=== PATIENT | female | born 1980 | race Caucasian/White ===

== ENCOUNTER 2018-11-28 20:04 | Observation (INO) | payer MEDICAID ==
[2018-11-28 21:54] LABS: BASOPHILS % 0.1 % (0.0-2.0); EOSINOPHILS % 0.8 % (0.0-5.0); HEMOGLOBIN. 11.8 g/dL (12.0-16.0); LYMPHOCYTES % 22.6 % (20.0-50.0); MEAN CORPUSCULAR HEMOGLOBIN 31.3 pg (28.0-32.0); MEAN PLATELET VOLUME 10.1 fl (7.4-10.4); NEUTROPHILS % 68.5 % (40.0-76.0); PLATELET 218 x1000/uL (130-400); RED BLOOD CELL COUNT 3.76 mill/uL (4.2-5.4); RED CELL DISTRIBUTION WIDTH 13.2 % (11.6-14.6)
[2018-11-28 21:58] LABS: CLARITY URINE CLEAR (CLEAR); COLOR URINE YELLOW (YELLOW); KETONES URINE NEGATIVE (NEGATIVE); LEUKOCYTE ESTERASE URINE NEGATIVE (NEGATIVE); NITRITE URINE NEGATIVE (NEGATIVE); OCCULT BLOOD URINE NEGATIVE (NEGATIVE); PROTEIN URINE NEGATIVE (NEGATIVE); SPECIFIC GRAVITY URINE 1.012 (1.005-1.030); UROBILINOGEN URINE 0.2 E.U./dL (0.2-1.0)
[2018-11-28 22:00] LABS: CHLORIDE 106 mEq/L (98-107)
[2018-11-28 22:02] LABS: INR 0.9; PARTIAL THROMBOPLASTIN TIME 23.1 sec (23.4-31.0); PROTHROMBIN TIME 9.4 sec (9.1-11.1)
[2018-11-29] MEDS ORDERED: PREN1TAB78 MT (00:14)
== END 2018-11-29 00:25 | disposition home or self-care (01) ==
LOC: 8 EST LDRP 20:04
PROVIDERS: ADMIT Specialist; ATTEND Specialist
DX: O16.3 Unspecified maternal hypertension, third trimester (principal); Z3A.33 33 weeks gestation of pregnancy
CPT/HCPCS: 36415; 76805; 76818; 80053; 81003; 84550; 85025; 85384; 85610; 85730; G0378; 99281

== ENCOUNTER 2019-01-04 13:17 | Observation (INO) | payer MEDICAID ==
[~2019-01-04] VITALS: Ht 172.7 cm; Wt 120.7 kg
[~2019-01-04 13:17] MED LIST: PREN1TAB78 MT
[2019-01-04 14:31] LABS: BASOPHILS % 0.2 % (0.0-2.0); EOSINOPHILS % 1.3 % (0.0-5.0); HEMATOCRIT. 33.5 % (36.0-48.0); HEMOGLOBIN. 11.2 g/dL (12.0-16.0); LYMPHOCYTES % 27.7 % (20.0-50.0); MEAN CORPUSCULAR HEMOGLOBIN 30.8 pg (28.0-32.0); MEAN CORPUSCULAR VOLUME 91.8 fL (81.0-99.0); MEAN PLATELET VOLUME 10.6 fl (7.4-10.4); MONOCYTES % 8.3 % (2.0-8.0); NEUTROPHILS % 62.5 % (40.0-76.0); PLATELET 190 x1000/uL (130-400); RED BLOOD CELL COUNT 3.65 mill/uL (4.2-5.4); RED CELL DISTRIBUTION WIDTH 13.2 % (11.6-14.6)
[2019-01-04 14:35] LABS: CHLORIDE 107 mEq/L (98-107)
[2019-01-04 14:43] LABS: CLARITY URINE TURBID (CLEAR); COLOR URINE YELLOW (YELLOW); KETONES URINE NEGATIVE (NEGATIVE); LEUKOCYTE ESTERASE URINE 1+ (NEGATIVE); NITRITE URINE NEGATIVE (NEGATIVE); OCCULT BLOOD URINE NEGATIVE (NEGATIVE); PROTEIN URINE NEGATIVE (NEGATIVE); SPECIFIC GRAVITY URINE 1.011 (1.005-1.030)
[2019-01-04 14:46] LABS: D-DIMER 8.67 mg/L FEU (<0.50); INR 0.9; PARTIAL THROMBOPLASTIN TIME 21.3 sec (23.4-31.0); PROTHROMBIN TIME 9.4 sec (9.6-11.0)
[2019-01-04] MEDS ORDERED: LABETALOL HCL 5MG/ML VIAL 20ML IV PRN ×3 (17:00→18:15)
[2019-01-04] MEDS: LACTATED RINGERS 1,000 ML IV SCH (18:22)
[2019-01-04 18:24] VITALS: BP 169/89
[2019-01-04] MEDS ORDERED: LACTATED RINGERS 1,000 ML IV SCH (18:50)
[2019-01-04 19:44] LABS: HEPATITIS B SURFACE ANTIGEN NEGATIVE
[2019-01-04] MEDS ORDERED: CITRIC ACID/SODIUM CITRATE SOLN 15ML UDC PO NR (22:15)
[2019-01-04] MEDS ORDERED: CITRIC ACID/SODIUM CITRATE SOLN 30ML UDC PO ONE (22:30)
[2019-01-04] MEDS ORDERED: CITRIC ACID/SODIUM CITRATE SOLN 30ML UDC PO NR (22:45)
[2019-01-05] MEDS: LACTATED RINGERS 1,000 ML IV SCH ×2 (01:29→17:08)
[2019-01-05] MEDS ORDERED: LABETALOL HCL 100MG TABLET PO SCH (10:00)
[2019-01-05 10:09] LABS: CLARITY URINE CLOUDY (CLEAR); COLOR URINE YELLOW (YELLOW); KETONES URINE NEGATIVE (NEGATIVE); LEUKOCYTE ESTERASE URINE TRACE (NEGATIVE); NITRITE URINE NEGATIVE (NEGATIVE); OCCULT BLOOD URINE NEGATIVE (NEGATIVE); PH URINE 6.5 (4.5-8.0); PROTEIN URINE NEGATIVE (NEGATIVE); SPECIFIC GRAVITY URINE 1.022 (1.005-1.030)
[2019-01-05 10:24] LABS: *AMPHETAMINES SCREEN URINE NEGATIVE (NEGATIVE)
[2019-01-05 10:25] LABS: *BARBITURATES SCREEN URINE NEGATIVE (NEGATIVE); *BENZODIAZEPINES SCREEN URINE NEGATIVE (NEGATIVE); *COCAINE SCREEN URINE NEGATIVE (NEGATIVE); METHADONE URINE SCREEN NEGATIVE (NEGATIVE); OPIATES URINE SCREEN NEGATIVE (NEGATIVE)
[2019-01-05 10:26] LABS: CANNABINOID URINE SCREEN NEGATIVE (NEGATIVE); PHENCYCLIDINE URINE SCREEN NEGATIVE (NEGATIVE)
[2019-01-05 10:34] LABS: BASOPHILS % 0.3 % (0.0-2.0); EOSINOPHILS % 0.7 % (0.0-5.0); HEMATOCRIT. 32.8 % (36.0-48.0); HEMOGLOBIN. 10.7 g/dL (12.0-16.0); LYMPHOCYTES % 32.8 % (20.0-50.0); MEAN CORPUSCULAR HEMOGLOBIN 29.9 pg (28.0-32.0); MEAN CORPUSCULAR VOLUME 91.5 fL (81.0-99.0); MEAN PLATELET VOLUME 10.5 fl (7.4-10.4); MONOCYTES % 6.4 % (2.0-8.0); NEUTROPHILS % 59.8 % (40.0-76.0); PLATELET 181 x1000/uL (130-400); RED BLOOD CELL COUNT 3.58 mill/uL (4.2-5.4); RED CELL DISTRIBUTION WIDTH 13.1 % (11.6-14.6)
[2019-01-05 10:45] LABS: CHLORIDE 108 mEq/L (98-107)
[2019-01-05 10:51] LABS: D-DIMER 9.85 mg/L FEU (<0.50); INR 0.9; PARTIAL THROMBOPLASTIN TIME 21.2 sec (23.4-31.0); PROTHROMBIN TIME 9.6 sec (9.6-11.0)
[2019-01-05] MEDS ORDERED: LABE100T5 PO (19:42)
== END 2019-01-05 19:50 | disposition home or self-care (01) ==
LOC: 8 EST LDRP 13:17
PROVIDERS: ADMIT Specialist; ATTEND Specialist
DX: O16.3 Unspecified maternal hypertension, third trimester (principal); Z3A.37 37 weeks gestation of pregnancy
CPT/HCPCS: 36415; 76805; 76818; 80053; 80305; 81003; 84550; 85025; 85379; 85384; 85610; 85730; 86703; 86762; 86850; 86900; 86901; 87340; 96374; 96376; 99281; G0378; J3490; J7120; 96360; 96361

== ENCOUNTER 2019-01-07 15:27 | Inpatient (IN) | payer MEDICAID ==
[~2019-01-07] VITALS: Ht 172.7 cm; Wt 120.7 kg
[~2019-01-07 15:27] MED LIST changes: +LABE100T5 PO
[2019-01-07] MEDS ORDERED: NALOXONE HCL 0.4 MG/ML 1ML VIAL IM PRN (20:15)
[2019-01-07] MEDS ORDERED: LIDOCAINE HCL 1% 20ML VIAL (Pyxis) INJ INFIL SCH (20:15)
[2019-01-07] MEDS ORDERED: BUTORPHANOL TARTRATE 2 MG/ML VIAL IV PRN (20:15)
[2019-01-07] MEDS ORDERED: METHYLERGONOVINE MALEATE 0.2 MG/ML IM PRN (20:15)
[2019-01-07] MEDS ORDERED: CARBOPROST TROMETHAMINE 250 MCG/ML AMPUL IM PRN (20:15)
[2019-01-07] MEDS ORDERED: PENICILLIN G POTASSIUM 5 MMU in DEXT 5% WATER 100 ML IV NR (21:00)
[2019-01-07 22:31] LABS: CLARITY URINE CLOUDY (CLEAR); COLOR URINE AMBER (YELLOW); KETONES URINE TRACE (NEGATIVE); LEUKOCYTE ESTERASE URINE 1+ (NEGATIVE); NITRITE URINE NEGATIVE (NEGATIVE); OCCULT BLOOD URINE NEGATIVE (NEGATIVE); PH URINE 6.5 (4.5-8.0); PROTEIN URINE 1+ (NEGATIVE); SPECIFIC GRAVITY URINE 1.021 (1.005-1.030)
[2019-01-07 22:33] LABS: BASOPHILS % 0.1 % (0.0-2.0); HEMATOCRIT. 31.3 % (36.0-48.0); HEMOGLOBIN. 10.4 g/dL (12.0-16.0); MEAN CORPUSCULAR HEMOGLOBIN 30.7 pg (28.0-32.0); MEAN CORPUSCULAR VOLUME 92.3 fL (81.0-99.0); MONOCYTES % 6.5 % (2.0-8.0); NEUTROPHILS % 63.4 % (40.0-76.0); PLATELET 171 x1000/uL (130-400); RED BLOOD CELL COUNT 3.39 mill/uL (4.2-5.4); RED CELL DISTRIBUTION WIDTH 13.6 % (11.6-14.6)
[2019-01-07 22:37] LABS: CHLORIDE 109 mEq/L (98-107)
[2019-01-07] MEDS: LACTATED RINGERS 1,000 ML IV SCH (22:39)
[2019-01-07] MEDS: LABETALOL HCL 100MG TABLET PO SCH (22:40)
[2019-01-07] MEDS: MISOPROSTOL 100MCG TABLET PO PRN (22:41)
[2019-01-07 22:42] LABS: INR 0.9; PARTIAL THROMBOPLASTIN TIME 22.4 sec (23.4-31.0); PROTHROMBIN TIME 9.6 sec (9.6-11.0)
[2019-01-08] MEDS ORDERED: PENICILLIN G POTASSIUM 2.5 MMU in DEXTROSE 5% WATER 50 ML IV SCH (01:00)
[2019-01-08] MEDS: MISOPROSTOL 100MCG TABLET PO PRN ×3 (03:09→13:57)
[2019-01-08] MEDS: MAGNESIUM/ALUMINUM HYDROXIDE/SIMETHICONE 30ML UDC PO PRN ×2 (03:10→22:12)
[2019-01-08] MEDS ORDERED: MAGNESIUM 4 G PREMIX 100 ML IV NR (03:15)
[2019-01-08] MEDS ORDERED: ONDANSETRON HCL 4MG/2ML INJ IV PRN (03:15)
[2019-01-08] MEDS ORDERED: MAGNESIUM 2 G PREMIX 50 ML IV SCH (03:15)
[2019-01-08] MEDS ORDERED: MAGNESIUM/ALUMINUM HYDROXIDE/SIMETHICONE 30ML UDC PO PRN (03:15)
[2019-01-08] MEDS: MAGNESIUM 20 G PREMIX (L & D) 500 ML IV SCH ×2 (03:55→20:20)
[2019-01-08] MEDS: LACTATED RINGERS 1,000 ML IV SCH (04:19)
[2019-01-08] MEDS ORDERED: LABETALOL HCL 5MG/ML VIAL 20ML IV PRN ×5 (08:15→16:00)
[2019-01-08] MEDS: LABETALOL HCL 100MG TABLET PO SCH ×2 (10:09→21:51)
[2019-01-08] MEDS: ACETAMINOPHEN 500MG TABLET PO PRN (14:09)
[2019-01-09] MEDS: LACTATED RINGERS 1,000 ML IV SCH (00:24)
[2019-01-09] MEDS ORDERED: LABETALOL HCL 5MG/ML VIAL 20ML IV NR (01:45)
[2019-01-09] MEDS ORDERED: LABETALOL HCL 5MG/ML VIAL 20ML IV PRN ×9 (07:45→18:45)
[2019-01-09] MEDS ORDERED: ROPIVACAINE HCL/PF EPIDURAL 200 ML EPI ONE (08:00)
[2019-01-09] MEDS: MISOPROSTOL 100MCG TABLET PO PRN ×2 (08:00→12:52)
[2019-01-09 09:06] LABS: EOSINOPHILS % 0.1 % (0.0-5.0); HEMATOCRIT. 32.7 % (36.0-48.0); HEMOGLOBIN. 10.7 g/dL (12.0-16.0); LYMPHOCYTES % 15.4 % (20.0-50.0); MEAN CORPUSCULAR HEMOGLOBIN 29.9 pg (28.0-32.0); MEAN CORPUSCULAR VOLUME 91.8 fL (81.0-99.0); MONOCYTES % 7.1 % (2.0-8.0); NEUTROPHILS % 77.4 % (40.0-76.0); PLATELET 187 x1000/uL (130-400); RED BLOOD CELL COUNT 3.56 mill/uL (4.2-5.4); RED CELL DISTRIBUTION WIDTH 13.8 % (11.6-14.6)
[2019-01-09 09:14] LABS: INR 0.9
[2019-01-09] MEDS: LABETALOL HCL 100MG TABLET PO SCH ×2 (09:29→20:59)
[2019-01-09] MEDS ORDERED: MISOPROSTOL 200MCG TABLET ONE (10:00)
[2019-01-09] MEDS: MAGNESIUM 20 G PREMIX (L & D) 500 ML IV SCH ×2 (12:18→23:04)
[2019-01-09] MEDS: DEXT 5%/LR + PITOCIN 20UNITS/L 1,000 ML IV SCH ×2 (13:14→18:58)
[2019-01-09] MEDS ORDERED: LIDOCAINE HCL/PF 1% 10 MG/ML 5ML VIAL ONE (15:35)
[2019-01-09] MEDS ORDERED: FENTANYL CITRATE/PF 50MCG/ML 2ML VIAL ONE (15:35)
[2019-01-09 16:00] LABS: CHLORIDE 106 mEq/L (98-107)
[2019-01-09] MEDS ORDERED: PROPOFOL 200MG/20ML VIAL IV ONE (16:19)
[2019-01-09] MEDS ORDERED: LIDOCAINE HCL 2%/EPINEPHRINE 1:100,000 20 ML VIAL INFIL ONE (16:27)
[2019-01-09] MEDS ORDERED: DEXT 5%/LR + PITOCIN 20UNITS/L 1,000 ML IV SCH (17:04)
[2019-01-09] MEDS ORDERED: GLYCERIN/WITCH HAZEL LEAF MEDICATED PAD TOP PRN (17:15)
[2019-01-09] MEDS ORDERED: IBUPROFEN 400MG TABLET PO PRN (17:15)
[2019-01-09] MEDS ORDERED: LANOLIN OINT 0.25 GM TUBE TOP PRN (17:15)
[2019-01-09] MEDS ORDERED: BENZOCAINE/LANOLIN/ALOE VERA SPRAY TOP PRN (17:15)
[2019-01-09] MEDS ORDERED: HEMORRHOIDAL SUPP PR PRN (17:15)
[2019-01-09] MEDS ORDERED: MAGNESIUM 20 G PREMIX (L & D) 500 ML IV SCH (17:15)
[2019-01-09] MEDS ORDERED: INFLUENZA VIRUS VACCINE(AFLURIA) 0.5ML SYR IM ONE (17:15)
[2019-01-09] MEDS ORDERED: BISACODYL 10MG SUPP PR PRN (17:15)
[2019-01-09] MEDS ORDERED: DIPHENHYDRAMINE 25MG CAPSULE PO PRN (17:15)
[2019-01-09] MEDS ORDERED: TETANUS, DIPHTHERIA, PERTUSSIS VAC/PF 0.5ML (>7YR OLD) IM ONE (17:15)
[2019-01-09] MEDS ORDERED: DOCUSATE SODIUM 100MG CAPSULE PO SCH (21:00)
[2019-01-10] MEDS: LACTATED RINGERS 1,000 ML IV SCH (05:04)
[2019-01-10] MEDS: ACETAMINOPHEN 500MG TABLET PO PRN ×2 (07:20→17:55)
[2019-01-10 07:30] LABS: BASOPHILS % 0.2 % (0.0-2.0); EOSINOPHILS % 0.5 % (0.0-5.0); HEMATOCRIT. 29.5 % (36.0-48.0); HEMOGLOBIN. 9.6 g/dL (12.0-16.0); LYMPHOCYTES % 18.2 % (20.0-50.0); MEAN CORPUSCULAR HEMOGLOBIN 29.8 pg (28.0-32.0); MEAN CORPUSCULAR VOLUME 91.6 fL (81.0-99.0); MEAN PLATELET VOLUME 10.4 fl (7.4-10.4); MONOCYTES % 10.2 % (2.0-8.0); NEUTROPHILS % 70.9 % (40.0-76.0); PLATELET 177 x1000/uL (130-400); RED BLOOD CELL COUNT 3.22 mill/uL (4.2-5.4); RED CELL DISTRIBUTION WIDTH 13.5 % (11.6-14.6)
[2019-01-10 07:45] LABS: CHLORIDE 108 mEq/L (98-107)
[2019-01-10] MEDS ORDERED: FERROUS SULFATE 325MG TABLET PO SCH (09:00)
[2019-01-10] MEDS ORDERED: PRENATAL VIT/FE FUMARATE/FA TABLET PO SCH (09:00)
[2019-01-10] MEDS: LABETALOL HCL 100MG TABLET PO SCH ×2 (09:10→21:43)
[2019-01-10] MEDS: MAGNESIUM 20 G PREMIX (L & D) 500 ML IV SCH (09:18)
[2019-01-10 16:35] VITALS: BP 134/75
[2019-01-10] MEDS: MAGNESIUM/ALUMINUM HYDROXIDE/SIMETHICONE 30ML UDC PO PRN (17:55)
[2019-01-10] MEDS: IBUPROFEN 800MG TABLET PO PRN (19:38)
[2019-01-10 20:00] VITALS: BP 148/86
[2019-01-10 21:40] VITALS: BP 138/68
[2019-01-11 00:15] VITALS: BP 131/81
[2019-01-11] MEDS ORDERED: TETANUS, DIPHTHERIA, PERTUSSIS VAC/PF 0.5ML (>7YR OLD) IM ONE (03:00)
[2019-01-11 04:10] VITALS: BP 136/78
[2019-01-11 08:00] VITALS: BP 185/99
[2019-01-11] MEDS: LABETALOL HCL 100MG TABLET PO SCH (08:14)
[2019-01-11] MEDS: IBUPROFEN 800MG TABLET PO PRN (08:14)
[2019-01-11 09:00] VITALS: BP 133/75
== END 2019-01-11 15:30 | disposition home or self-care (01) | DRG 560 ==
LOC: OBSVTOIN 15:27 → 8 EST LDRP 15:27 → 8EST 01-10 16:31
PROVIDERS: ADMIT Specialist; ATTEND Specialist
PROC: 10D07Z6 Extraction of Products of Conception, Vacuum, Via Natural or Artificial Opening (ICD-10-PCS; principal; 2019-01-10)
PROC: 0HQ9XZZ Repair Perineum Skin, External Approach (ICD-10-PCS; 2019-01-10)
PROC: 3E0S3BZ Introduction of Anesthetic Agent into Epidural Space, Percutaneous Approach (ICD-10-PCS; 2019-01-10)
PROC: 00HU33Z Insertion of Infusion Device into Spinal Canal, Percutaneous Approach (ICD-10-PCS; 2019-01-10)
DX: O40.3XX0 Polyhydramnios, third trimester, not applicable or unspecified (principal); Z68.41 Body mass index [BMI] 40.0-44.9, adult; E66.9 Obesity, unspecified; D64.9 Anemia, unspecified; O99.214 Obesity complicating childbirth; O13.4 Gestational [pregnancy-induced] hypertension without significant proteinuria, complicating childbirth; O69.1XX0 Labor and delivery complicated by cord around neck, with compression, not applicable or unspecified; O76 Abnormality in fetal heart rate and rhythm complicating labor and delivery; O99.334 Smoking (tobacco) complicating childbirth; O99.02 Anemia complicating childbirth; O70.0 First degree perineal laceration during delivery; Z3A.39 39 weeks gestation of pregnancy; Z37.0 Single live birth
CPT/HCPCS: 36415; 76815; 76818; 83735; 84550; 85384; 86592; 86762; 90715; J0595; J2405; J2540; J2590; J2704; J2795; J3010; J3475; J3490; J7060; J7120; A4315

== ENCOUNTER 2019-01-30 08:03 | Emergency (ER) | payer MEDICAID ==
[~2019-01-30] VITALS: Ht 175.3 cm; Wt 109.0 kg
[2019-01-30] MEDS ORDERED: SODIUM CHLORIDE 0.9% 1,000 ML IV ONE (10:57)
[2019-01-30] MEDS ORDERED: VALPROATE SODIUM 1,000 MG in DEXT 5% WATER 100 ML IV ONE (11:00)
[2019-01-30 12:18] VITALS: BP 127/63
== END 2019-01-30 12:18 | disposition home or self-care (01) ==
LOC: ER 08:03
DX: R56.9 Unspecified convulsions (principal); I10 Essential (primary) hypertension; Z79.899 Other long term (current) drug therapy
CPT/HCPCS: 96365; 99283; J3490; J7030; J7060; Z7610

== ENCOUNTER 2019-11-11 01:08 | Emergency (ER) | payer MEDICAID ==
[~2019-11-11] VITALS: Ht 172.7 cm; Wt 110.2 kg
[2019-11-11 04:57] LABS: BASOPHILS % 0.3 % (0.0-2.0); EOSINOPHILS % 0.4 % (0.0-5.0); HEMATOCRIT. 38.8 % (36.0-48.0); LYMPHOCYTES % 23.9 % (20.0-50.0); MEAN CORPUSCULAR HEMOGLOBIN 29.1 pg (28.0-32.0); MEAN CORPUSCULAR VOLUME 87.1 fL (81.0-99.0); MEAN PLATELET VOLUME 9.2 fl (7.4-10.4); MONOCYTES % 5.3 % (2.0-8.0); NEUTROPHILS % 70.1 % (40.0-76.0); PLATELET 233 x1000/uL (130-400); RED BLOOD CELL COUNT 4.46 mill/uL (4.2-5.4); RED CELL DISTRIBUTION WIDTH 14.1 % (11.6-14.6)
[2019-11-11 05:00] LABS: CHLORIDE 111 mEq/L (98-107)
[2019-11-11 05:04] LABS: ETHANOL BLOOD < 10 mg/dL
[2019-11-11] MEDS ORDERED: VALPROIC ACID 250MG CAPSULE PO ONE (05:15)
[2019-11-11 07:40] VITALS: BP 141/90
== END 2019-11-11 07:50 | disposition home or self-care (01) ==
LOC: ER 01:08
DX: G40.909 Epilepsy, unspecified, not intractable, without status epilepticus (principal); F17.210 Nicotine dependence, cigarettes, uncomplicated
CPT/HCPCS: 36415; 80053; 80165; 80320; 85025; 99283; G0480

== ENCOUNTER 2022-12-08 10:30 | Inpatient (IN) | payer MEDICAID ==
[~2022-12-08] VITALS: Ht 172.7 cm; Wt 128.4 kg
[~2022-12-08 10:30] MED LIST changes: -LABE100T5 PO; +LABE100T9 PO
[2022-12-08] MEDS ORDERED: METHYLERGONOVINE MALEATE 0.2 MG/ML IM PRN (11:30)
[2022-12-08] MEDS ORDERED: OXYTOCIN 30 UNITS/500ML NS PMX 500 ML IV SCH (11:30)
[2022-12-08] MEDS ORDERED: MAGNESIUM 20 G PREMIX (L & D) 500 ML IV SCH (11:30)
[2022-12-08] MEDS ORDERED: CARBOPROST TROMETHAMINE 250 MCG/ML AMPUL IM PRN (11:30)
[2022-12-08] MEDS ORDERED: NALOXONE HCL 0.4 MG/ML 1ML VIAL IM PRN (11:30)
[2022-12-08] MEDS ORDERED: BETAMETHASONE ACET/BETAMET 30 MG/5 ML VIAL IM SCH (11:30)
[2022-12-08] MEDS ORDERED: LIDOCAINE HCL 1% 20ML VIAL (Pyxis) INJ INFIL SCH (11:30)
[2022-12-08] MEDS ORDERED: BUTORPHANOL TARTRATE 2 MG/ML VIAL IV PRN (11:30)
[2022-12-08] MEDS ORDERED: PENICILLIN G POTASSIUM 5 MMU in DEXT 5% WATER 100 ML IV SCH (12:00)
[2022-12-08] MEDS: MAGNESIUM 20 G PREMIX (L & D) 500 ML IV SCH (12:01)
[2022-12-08] MEDS: LACTATED RINGERS 1,000 ML IV SCH ×3 (12:04→20:21)
[2022-12-08] MEDS ORDERED: HYDRALAZINE 20MG/ML VIAL IV PRN (12:15)
[2022-12-08] MEDS ORDERED: ROPIVACAINE HCL/PF EPIDURAL 200 ML EP SCH (12:15)
[2022-12-08] MEDS ORDERED: LABETALOL HCL 5MG/ML VIAL 20ML IV PRN ×3 (12:15)
[2022-12-08] MEDS ORDERED: ROPIVACAINE HCL/PF EPIDURAL 200 ML EPI SCH (12:15)
[2022-12-08 12:28] LABS: BASOPHILS % 0.5 % (0.0-2.0); EOSINOPHILS % 0.1 % (0.0-5.0); HEMATOCRIT. 38.9 % (36.0-48.0); MEAN CORPUSCULAR HEMOGLOBIN 31.7 pg (28.0-32.0); MEAN CORPUSCULAR VOLUME 95.1 fL (81.0-99.0); MEAN PLATELET VOLUME 11.3 fl (7.4-10.4); MONOCYTES % 7.8 % (2.0-8.0); NEUTROPHILS % 78.6 % (40.0-76.0); PLATELET 206 x1000/uL (130-400); RED BLOOD CELL COUNT 4.09 mill/uL (4.2-5.4); RED CELL DISTRIBUTION WIDTH 13.7 % (11.6-14.6)
[2022-12-08 12:29] LABS: CLARITY URINE CLOUDY (CLEAR); COLOR URINE DARK YELLOW (YELLOW); KETONES URINE TRACE (NEGATIVE); LEUKOCYTE ESTERASE URINE TRACE (NEGATIVE); NITRITE URINE NEGATIVE (NEGATIVE); OCCULT BLOOD URINE NEGATIVE (NEGATIVE); PROTEIN URINE TRACE (NEGATIVE); SPECIFIC GRAVITY URINE 1.024 (1.005-1.030)
[2022-12-08 12:41] LABS: INR 0.9; PARTIAL THROMBOPLASTIN TIME 25.1 sec (23.4-31.0); PROTHROMBIN TIME 9.4 sec (9.6-11.0)
[2022-12-08] MEDS ORDERED: ROPIVACAINE HCL/PF EPIDURAL 200 ML EPI ONE (12:50)
[2022-12-08] MEDS ORDERED: CITRIC ACID/SODIUM CITRATE SOLN 30ML UDC PO NR (13:00)
[2022-12-08 13:06] LABS: *AMPHETAMINES SCREEN URINE NEGATIVE (NEGATIVE); *BARBITURATES SCREEN URINE NEGATIVE (NEGATIVE); *BENZODIAZEPINES SCREEN URINE NEGATIVE (NEGATIVE); *COCAINE SCREEN URINE NEGATIVE (NEGATIVE); CANNABINOID URINE SCREEN NEGATIVE (NEGATIVE); METHADONE URINE SCREEN NEGATIVE (NEGATIVE); OPIATES URINE SCREEN NEGATIVE (NEGATIVE); PHENCYCLIDINE URINE SCREEN NEGATIVE (NEGATIVE)
[2022-12-08 14:43] LABS: HEPATITIS B SURFACE ANTIGEN NEGATIVE
[2022-12-08] MEDS: PENICILLIN G POTASSIUM 2.5 MMU in DEXTROSE 5% WATER 50 ML IV SCH ×2 (17:07→20:57)
[2022-12-09] MEDS: IBUPROFEN 800MG TABLET PO NR ×2 (02:10→23:11)
[2022-12-09 03:50] VITALS: BP 130/83
[2022-12-09 06:00] VITALS: BP 144/79
[2022-12-09] MEDS: MAGNESIUM 20 G PREMIX (L & D) 500 ML IV SCH (06:08)
[2022-12-09 08:00] VITALS: BP 143/95
[2022-12-09] MEDS ORDERED: OXYTOCIN 30 UNITS/500ML NS PMX 500 ML IV SCH (08:15)
[2022-12-09] MEDS ORDERED: DIPHENHYDRAMINE 25MG CAPSULE PO PRN (08:15)
[2022-12-09] MEDS ORDERED: IBUPROFEN 400MG TABLET PO PRN (08:15)
[2022-12-09] MEDS ORDERED: LANOLIN OINT 7GM TUBE TOP PRN (08:15)
[2022-12-09] MEDS ORDERED: RHO(D) IMMUNE GLOBULIN 300 MCG/SYR IM PRN (08:15)
[2022-12-09 08:50] LABS: BASOPHILS % 0.1 % (0.0-2.0); HEMATOCRIT. 32.8 % (36.0-48.0); HEMOGLOBIN. 10.8 g/dL (12.0-16.0); LYMPHOCYTES % 8.2 % (20.0-50.0); MEAN CORPUSCULAR HEMOGLOBIN 31.7 pg (28.0-32.0); MEAN CORPUSCULAR VOLUME 96.2 fL (81.0-99.0); MEAN PLATELET VOLUME 10.5 fl (7.4-10.4); MONOCYTES % 6.9 % (2.0-8.0); NEUTROPHILS % 84.8 % (40.0-76.0); PLATELET 170 x1000/uL (130-400); RED BLOOD CELL COUNT 3.41 mill/uL (4.2-5.4); RED CELL DISTRIBUTION WIDTH 13.5 % (11.6-14.6)
[2022-12-09] MEDS: LABETALOL HCL 100MG TABLET PO SCH ×2 (10:33→23:13)
[2022-12-09] MEDS: DIVALPROEX SODIUM 500MG DR TABLET PO SCH (12:25)
[2022-12-09] MEDS ORDERED: MAGNESIUM 20 G PREMIX (L & D) 500 ML IV SCH (15:30)
[2022-12-09 16:00] VITALS: BP 127/71
[2022-12-09 18:18] LABS: HEMATOCRIT. 33.3 % (36.0-48.0); HEMOGLOBIN. 10.9 g/dL (12.0-16.0); LYMPHOCYTES % 10.3 % (20.0-50.0); MEAN CORPUSCULAR HEMOGLOBIN 31.9 pg (28.0-32.0); MEAN CORPUSCULAR VOLUME 97.3 fL (81.0-99.0); MONOCYTES % 6.7 % (2.0-8.0); PLATELET 177 x1000/uL (130-400); RED BLOOD CELL COUNT 3.42 mill/uL (4.2-5.4); RED CELL DISTRIBUTION WIDTH 13.8 % (11.6-14.6)
[2022-12-09 19:55] LABS: BASOPHILS % 0.1 % (0.0-2.0); EOSINOPHILS % 0.2 % (0.0-5.0); HEMATOCRIT. 30.7 % (36.0-48.0); HEMOGLOBIN. 10.2 g/dL (12.0-16.0); LYMPHOCYTES % 13.3 % (20.0-50.0); MEAN CORPUSCULAR HEMOGLOBIN 32.1 pg (28.0-32.0); MEAN CORPUSCULAR VOLUME 96.7 fL (81.0-99.0); MEAN PLATELET VOLUME 10.3 fl (7.4-10.4); MONOCYTES % 6.2 % (2.0-8.0); NEUTROPHILS % 80.2 % (40.0-76.0); PLATELET 171 x1000/uL (130-400); RED BLOOD CELL COUNT 3.17 mill/uL (4.2-5.4); RED CELL DISTRIBUTION WIDTH 13.8 % (11.6-14.6)
[2022-12-09 20:00] VITALS: BP 130/85
[2022-12-09 23:00] VITALS: BP 128/78
[2022-12-10] MEDS: DIVALPROEX SODIUM 500MG DR TABLET PO SCH ×3 (00:13→21:27)
[2022-12-10 00:15] VITALS: BP 124/72
[2022-12-10 04:00] VITALS: BP 106/74
[2022-12-10 07:02] LABS: BASOPHILS % 0.1 % (0.0-2.0); EOSINOPHILS % 0.5 % (0.0-5.0); HEMATOCRIT. 27.6 % (36.0-48.0); HEMOGLOBIN. 9.2 g/dL (12.0-16.0); LYMPHOCYTES % 20.8 % (20.0-50.0); MEAN CORPUSCULAR HEMOGLOBIN 32.4 pg (28.0-32.0); MEAN CORPUSCULAR VOLUME 96.7 fL (81.0-99.0); MEAN PLATELET VOLUME 10.6 fl (7.4-10.4); MONOCYTES % 5.4 % (2.0-8.0); NEUTROPHILS % 73.2 % (40.0-76.0); PLATELET 158 x1000/uL (130-400); RED BLOOD CELL COUNT 2.85 mill/uL (4.2-5.4); RED CELL DISTRIBUTION WIDTH 13.9 % (11.6-14.6)
[2022-12-10] MEDS: IBUPROFEN 800MG TABLET PO PRN ×3 (09:56→21:29)
[2022-12-10] MEDS: LABETALOL HCL 100MG TABLET PO SCH ×2 (09:59→21:27)
[2022-12-10 10:16] VITALS: BP 109/105
[2022-12-10 15:46] VITALS: BP 134/66
[2022-12-10 21:47] VITALS: BP 126/69
[2022-12-11] MEDS: IBUPROFEN 800MG TABLET PO PRN ×2 (03:47→08:30)
[2022-12-11 05:33] VITALS: BP 133/97
[2022-12-11 07:50] VITALS: BP 135/85
[2022-12-11] MEDS: DIVALPROEX SODIUM 500MG DR TABLET PO SCH (08:30)
[2022-12-11] MEDS: LABETALOL HCL 100MG TABLET PO SCH (08:30)
[2022-12-11] MEDS ORDERED: AMOX-494 MT (10:40)
[2022-12-11] MEDS ORDERED: IBUP-2030 MT (10:40)
[2022-12-11 11:42] LABS: HEMATOCRIT. 28.6 % (36.0-48.0); HEMOGLOBIN. 9.6 g/dL (12.0-16.0); MEAN CORPUSCULAR HEMOGLOBIN 32.3 pg (28.0-32.0); MEAN CORPUSCULAR VOLUME 96.7 fL (81.0-99.0); MEAN PLATELET VOLUME 10.2 fl (7.4-10.4); PLATELET 166 x1000/uL (130-400); RED BLOOD CELL COUNT 2.96 mill/uL (4.2-5.4); RED CELL DISTRIBUTION WIDTH 14.3 % (11.6-14.6)
[2022-12-11] MEDS ORDERED: DIVA500T3 MT (11:49)
[2022-12-11] MEDS ORDERED: AMOXICILLIN 500 MG CAPSULE PO SCH (14:00)
[2022-12-11 15:19] LABS: PLATELET ESTIMATE NORMAL
== END 2022-12-11 13:30 | disposition home or self-care (01) | DRG 560 ==
LOC: OBSVTOIN 10:30 → 8 EST A/PP 10:30 → 8 EST LDRP 10:53 → 8EST 12-09 03:45
PROVIDERS: ADMIT Obstetrics & Gynecology; ATTEND Obstetrics & Gynecology
PROC: 10E0XZZ Delivery of Products of Conception, External Approach (ICD-10-PCS; principal; 2022-12-08)
PROC: 3E0S3BZ Introduction of Anesthetic Agent into Epidural Space, Percutaneous Approach (ICD-10-PCS; 2022-12-08)
PROC: 00HU33Z Insertion of Infusion Device into Spinal Canal, Percutaneous Approach (ICD-10-PCS; 2022-12-08)
DX: O13.4 Gestational [pregnancy-induced] hypertension without significant proteinuria, complicating childbirth (principal); Z37.0 Single live birth; D62 Acute posthemorrhagic anemia; O99.354 Diseases of the nervous system complicating childbirth; O99.12 Other diseases of the blood and blood-forming organs and certain disorders involving the immune mechanism complicating childbirth; G40.909 Epilepsy, unspecified, not intractable, without status epilepticus; O69.81X0 Labor and delivery complicated by cord around neck, without compression, not applicable or unspecified; O99.214 Obesity complicating childbirth; O60.00 Preterm labor without delivery, unspecified trimester; D72.829 Elevated white blood cell count, unspecified; O99.02 Anemia complicating childbirth; O77.0 Labor and delivery complicated by meconium in amniotic fluid; Z3A.39 39 weeks gestation of pregnancy; Z20.822 Contact with and (suspected) exposure to COVID-19
CPT/HCPCS: 36415; 76805; 76818; 80305; 81003; 83735; 84550; 85025; 85384; 86592; 86703; 86762; 86850; 86900; 87340; 87426; 99281; J0595; J0702; J2540; J2795; J3475; J3490; J7060; J7120; A4315; J2590